=== PATIENT | female | born 1990 | race Caucasian/White ===

== ENCOUNTER → 2018-08-22 11:08 | Outpatient (CLI) | payer OTHER, SELFPAY ==
--- NOTE | 2018-08-22 | DI.RAD.S_ITS ---
PROCEDURE: XR CHEST 2V INDICATIONS: palpitations, short of breath, chondrocostal TECHNIQUE: 2 views of the chest were acquired. COMPARISON: None. FINDINGS: Surgical changes and devices: None. Lungs and pleura: Lungs are clear. No pleural effusions or pneumothorax. Mediastinum: Mediastinal contours are normal. Heart size is normal. Bones and chest wall: No suspicious bony abnormalities. Soft tissues appear unremarkable. IMPRESSION: No acute cardiopulmonary disease. Dictated by: Eri Helm M.D. on 08/22/2018 at 12:35 Approved by: Eri Helm M.D. on 08/22/2018 at 12:35
== END ==
PROVIDERS: PCP Physician Assistant; Visit Provider Physician Assistant
DX: R00.2 Palpitations (principal); R06.02 Shortness of breath; M94.0 Chondrocostal junction syndrome [Tietze]
CPT/HCPCS: 71046

== ENCOUNTER → 2018-11-27 08:01 | Outpatient (CLI) | payer OTHER, SELFPAY ==
[2018-11-27 09:01] LABS: Cholesterol 153 mg/dL (140-199); HDL Cholesterol 63 mg/dL (40-60); LDL Cholesterol Calculated 84 mg/dL (<100); Triglycerides 32 mg/dL (35-150)
[2018-11-30 18:30] LABS: Metanephrine, Free < 25 pg/mL (< OR = 57); Normetanephrine, Free 87 pg/mL (< OR = 148)
[2018-11-30 19:46] LABS: Total Volume 1600 mL; Urine, Metanephrine 51 mcg/24 h (36-190); Urine, Normetanephrine 168 mcg/24 h (35-482)
[2018-12-02 18:50] LABS: Creatinine, 24 Urine 1.09 g/24 h (0.50-2.15); Total Catecholamines 61 mcg/24 h (26-121); Total Volume: 1600 mL
== END ==
PROVIDERS: PCP Physician Assistant; Visit Provider Internal Medicine Cardiovascular Disease
DX: R03.0 Elevated blood-pressure reading, without diagnosis of hypertension (principal)
CPT/HCPCS: 36415; 80061; 82088; 82384; 83835

== ENCOUNTER → 2019-10-22 14:28 | Outpatient (CLI) | payer OTHER, SELFPAY ==
[2019-10-22 15:07] LABS: Add Manual Diff / Slide Review NO; Basophils Absolute Auto 0 /uL (0-100); Basophils Percent Auto 0.7 % (0-2); Eosinophils Absolute Auto 100 /uL (0-450); Eosinophils Percent Auto 0.8 % (2-4); Hematocrit 38.9 % (36-46); Hemoglobin 13.5 g/dL (12.0-16.0); Lymphocytes Absolute Auto 1500 /uL (1100-4500); Lymphocytes Percent Auto 23.1 % (25-40); Mean Corpuscular HGB Conc 34.8 % (30-36); Mean Corpuscular Hemoglobin 32.7 PG (26-34); Monocytes Absolute Auto 700 /uL (0-900); Monocytes Percent Auto 10.2 % (3-14); Neutrophils Absolute Auto 4200 /uL (1500-7000); Neutrophils Percent Auto 65.2 % (50-75); Platelet Count 207 X10^3/uL (150-400); Red Blood Cell Count 4.13 X10^6/uL (4.0-5.2); Red Cell Distribution Width 12.9 % (11.6-14.8); White Blood Cell Count 6.4 X10^3/uL (4.5-11.0)
[2019-10-22 15:30] LABS: Alanine Aminotransferase 11 IU/L (<35); Albumin 4.5 g/dL (3.5-5.0); Albumin Globulin Ratio 1.6 (1.0-2.8); Alkaline Phosphatase 43 U/L (38-126); Aspartate Aminotransferase 27 IU/L (14-36); BUN Creatinine Ratio 21.4 (6-22); Bilirubin Total 0.7 mg/dL (0.2-1.3); Blood Urea Nitrogen 12 mg/dL (7-17); Calcium 9.4 mg/dL (8.4-10.2); Carbon Dioxide 23 mmol/L (22-32); Chloride 104 mmol/L (98-107); Estimated Glomerular Filt Rate > 60.0 mL/min (>60); Globulin 2.9 g/dL (1.7-4.1); Glucose 80 mg/dL (70-100); HEMOLYSIS < 15 (0-50); Magnesium 1.9 mg/dL (1.6-2.3); Potassium 3.5 mmol/L (3.4-5.1); Sodium 137 mmol/L (137-145); Total Protein 7.4 g/dL (6.3-8.2)
[2019-10-22 15:48] LABS: HEMOLYSIS < 15 (0-50); Iron 155 ug/dL (37-170)
[2019-10-22 15:59] LABS: Percent Iron Saturation 48 % (15-50); Total Iron Binding Capacity 323 ug/dL (265-497); Transferrin 258 mg/dL (206-381)
[2019-10-22 16:20] LABS: TSH w/ Reflex to FT4 1.62 uIU/mL (0.47-4.68)
== END ==
PROVIDERS: PCP Physician Assistant; Referring Provider Physician Assistant; Visit Provider Physician Assistant
DX: R00.2 Palpitations (principal)
CPT/HCPCS: 36415; 80053; 83540; 83550; 83735; 84443; 85025

== ENCOUNTER → 2020-01-07 15:17 | Outpatient (CLI) | payer OTHER, SELFPAY ==
[2020-01-07 16:55] LABS: Follicle Stimulating Hormone 2.78 mIU/mL
== END ==
PROVIDERS: PCP Physician Assistant; Referring Provider Obstetrics & Gynecology; Visit Provider Obstetrics & Gynecology
DX: E28.2 Polycystic ovarian syndrome (principal)
CPT/HCPCS: 36415; 83001; 83002

== ENCOUNTER → 2021-11-04 14:47 | Outpatient (CLI) | payer OTHER, SELFPAY ==
[2021-11-04 20:06] LABS: Urine Chlamydia NOT DETECTED; Urine N gonorrhoeae NOT DETECTED
== END ==
PROVIDERS: PCP Physician Assistant; Visit Provider Obstetrics & Gynecology
DX: Z34.81 Encounter for supervision of other normal pregnancy, first trimester (principal); Z11.3 Encounter for screening for infections with a predominantly sexual mode of transmission
CPT/HCPCS: 87491; 87591

== ENCOUNTER → 2021-11-04 15:50 | Outpatient (CLI) | payer OTHER, SELFPAY ==
[2021-11-04 16:40] LABS: Add Manual Diff / Slide Review NO; Basophils Absolute Auto 0 /uL (0-100); Basophils Percent Auto 0.5 % (0-2); Eosinophils Absolute Auto 100 /uL (0-450); Eosinophils Percent Auto 0.9 % (2-4); Hemoglobin 13.8 g/dL (12.0-16.0); Lymphocytes Absolute Auto 1300 /uL (1100-4500); Lymphocytes Percent Auto 15.1 % (25-40); Mean Corpuscular HGB Conc 35.3 % (30-36); Mean Corpuscular Hemoglobin 32.9 PG (26-34); Mean Corpuscular Volume 93.2 fL (80-100); Monocytes Absolute Auto 700 /uL (0-900); Monocytes Percent Auto 7.8 % (3-14); Neutrophils Absolute Auto 6400 /uL (1500-7000); Neutrophils Percent Auto 75.7 % (50-75); Platelet Count 206 X10^3/uL (150-400); Red Blood Cell Count 4.19 X10^6/uL (4.0-5.2); Red Cell Distribution Width 12.9 % (11.6-14.8); White Blood Cell Count 8.4 X10^3/uL (4.5-11.0)
[2021-11-04 17:40] LABS: Hepatitis B Surface Antigen NEGATIVE s/c (NEGATIVE); Rubella Antibody IgG 38.4 IU/mL (>15)
[2021-11-04 17:57] LABS: HIV 1 & 2 Ab/Ag 4th Gen Combo NEGATIVE (NEGATIVE); Hep C Virus Ab w/Reflex Quant NEGATIVE s/c (NEGATIVE)
[2021-11-05 03:53] LABS: RPR Screen Non Reactive (Non Reactive)
[2021-11-05 13:10] LABS: Varicella IgG Antibody <135 index (Immune >165)
== END ==
PROVIDERS: PCP Physician Assistant; Referring Provider Obstetrics & Gynecology; Visit Provider Obstetrics & Gynecology
DX: Z34.81 Encounter for supervision of other normal pregnancy, first trimester (principal); Z11.3 Encounter for screening for infections with a predominantly sexual mode of transmission
CPT/HCPCS: 36415; 80055; 86787; 86803; 86850; 86900; 86901; 87389; 87491; 87591

== ENCOUNTER → 2021-12-02 14:13 | Outpatient (CLI) | payer OTHER, SELFPAY ==
[2021-12-02 16:19] LABS: Appearance Urine UA CLEAR; Bilirubin Urine UA NEGATIVE (NEGATIVE); Color Urine UA YELLOW; Glucose Urine UA NEGATIVE (Negative); Ketones Urine UA NEGATIVE (NEGATIVE); Leukocyte Esterase Urine UA NEGATIVE (NEGATIVE); Nitrite Urine UA NEGATIVE (Negative); Occult Blood Urine UA NEGATIVE (Negative); Protein Urine UA NEGATIVE (Negative); Specific Gravity Urine UA 1.025 (1.000-1.035); Urobilinogen Urine UA 0.2 E.U./dL (0.2)
[2021-12-02 16:24] LABS: pH Urine UA 5.5 (4.5-8.0)
== END ==
PROVIDERS: PCP Physician Assistant; Visit Provider Obstetrics & Gynecology
DX: Z34.81 Encounter for supervision of other normal pregnancy, first trimester (principal)
CPT/HCPCS: 81003; 87086

== ENCOUNTER → 2022-01-31 15:13 | Outpatient (CLI) | payer OTHER, MEDICAID, SELFPAY ==
--- NOTE | 2022-01-31 15:16 | DI.US.S_ITS ---
PROCEDURE: US OB >= 14 WEEKS FETUS INDICATIONS: ANATOMY OUTSIDE/PRIOR DATING DATA: Last menstrual period (LMP): 09/17/2021 LMP-based estimated date of delivery (YARED): 06/24/2022. First dating scan (date and location): 11/04/2021. Estimated date of delivery (YARED) from first dating scan: 06/23/2022. The calculations are made using the ultrasound YARED of 06/23/2022. TECHNIQUE: Real-time scanning was performed of the fetus, with image documentation and biometric measurements. COMPARISON: [facility], , OB >= 14 WEEKS FETUS, 01/27/2022, 14:56. FINDINGS: General: A single living intrauterine gestation is present. Presentation: Vertex. Placenta: Placental position is anterior , without previa. Amniotic fluid index: 15 cm, normal range is 5-24 cm. Single deepest vertical pocket is 4.9 cm. heart rate: 128 beats per minute. Maternal cervical canal: 4.3 cm long. Normal lower limit is 2.5 cm. biometrics: Biparietal diameter: 19 weeks 5 days Head circumference: 19 weeks 5 days Abdominal circumference: 20 weeks 2 days Femur length: 19 weeks 6 days Clinically estimated gestational age: 19 weeks 4 days Composite gestational age from present scan: 19 weeks 6 days Estimated weight and percentile: 329 g; 73rd percentile Anatomic survey: Neuro: Ventricles are non-dilated at less than 10 mm. Cisterna magna is normal at 3-11 mm. Cerebellum is normal in size and morphology. Right choroid plexus cyst measuring 5.6 mm. Nuchal skin fold: Normal at less than 6 mm between 14-21 weeks gestational age. Face: Nose and lips, facial profile are normal. Spine: No evidence for spina bifida. Heart: 4-chambered heart is present, with normal ventricular outflow tracts. Diaphragm: Diaphragm is intact. Stomach: Left-sided stomach is present. Kidneys: No hydronephrosis. Normal is less than 5 mm in 2nd trimester, less than 7 mm in 3rd trimester. Cord: 3-vessel cord has orthotopic insertion. Bladder: Normal in size. Extremities: All 4 extremities identified. Maternal posterior intramural fibroid measuring up to 4.1 cm. IMPRESSION: 1. 19 week 6 day single living IUP corresponding to ultrasound YARED of 06/23/2022. 2. Isolated choroid plexus cyst. Otherwise unremarkable survey with no anatomic abnormalities seen. 3. 4.1 cm posterior maternal intramural fibroid. We strive to produce accurate, complete, and clear reports of imaging services. To assist us in improving patient care, this report was composed using standard report templates and voice recognition software. Therefore, it may contain abnormal punctuation, insertions and/or omissions. Occasional wrong-word or sound-alike substitutions may occur. Though we review the report and make efforts to correct it, we do recommend that the report be read carefully in proper context to recognize any text inaccuracies. Dictated by: Marcelino IBARRA Interpreted: Luis Franks MD on 02/01/2022 at 11:53 Transcribed by: CELY on 02/01/2022 at 11:56 Approved by: Luis Franks M.D. on 02/01/2022 at 16:50
== END ==
PROVIDERS: PCP Physician Assistant; Referring Provider Obstetrics & Gynecology; Visit Provider Obstetrics & Gynecology
DX: O35.8XX0 Maternal care for other (suspected) fetal abnormality and damage, not applicable or unspecified (principal); O34.13 Maternal care for benign tumor of corpus uteri, third trimester; D25.1 Intramural leiomyoma of uterus; Z3A.20 20 weeks gestation of pregnancy
CPT/HCPCS: 76811

== ENCOUNTER → 2022-02-02 12:40 | Outpatient (CLI) | payer OTHER, MEDICAID, SELFPAY | PROVIDERS: PCP Physician Assistant; Referring Provider Obstetrics & Gynecology; Visit Provider Obstetrics & Gynecology | DX: Z34.82 Encounter for supervision of other normal pregnancy, second trimester (principal) | CPT/HCPCS: 36415 ==

== ENCOUNTER → 2022-03-24 14:43 | Outpatient (CLI) | payer OTHER, MEDICAID, SELFPAY ==
[2022-03-24 18:21] LABS: Hematocrit 30.6 % (36-46); Hemoglobin 10.6 g/dL (12.0-16.0)
[2022-03-24 19:11] LABS: GTT (PREG) 1 Hour PP 50gm Dose 131 mg/dL (76-139)
== END ==
PROVIDERS: PCP Physician Assistant; Referring Provider Obstetrics & Gynecology; Visit Provider Obstetrics & Gynecology
DX: Z34.82 Encounter for supervision of other normal pregnancy, second trimester (principal); Z3A.26 26 weeks gestation of pregnancy
CPT/HCPCS: 36415; 82950; 85014; 85018

== ENCOUNTER → 2022-05-26 15:34 | Outpatient (CLI) | payer OTHER, MEDICAID, SELFPAY ==
[2022-05-27 15:10] LABS: Strep Grp B PCR POS for Grp B Strep
== END ==
PROVIDERS: PCP Physician Assistant; Visit Provider Obstetrics & Gynecology
DX: Z36.85 Encounter for antenatal screening for Streptococcus B (principal); Z3A.36 36 weeks gestation of pregnancy
CPT/HCPCS: 87653

== ENCOUNTER 2022-06-01 09:50 | Outpatient (CLI) | payer OTHER, MEDICAID, SELFPAY ==
[2022-06-01 11:00] LABS: Add Manual Diff / Slide Review NO; Basophils Absolute Auto 0 /uL (0-100); Basophils Percent Auto 0.1 % (0-2); Eosinophils Absolute Auto 0 /uL (0-450); Eosinophils Percent Auto 0.5 % (2-4); Hematocrit 28.2 % (36-46); Hemoglobin 9.8 g/dL (12.0-16.0); Lymphocytes Absolute Auto 800 /uL (1100-4500); Lymphocytes Percent Auto 8.9 % (25-40); Mean Corpuscular HGB Conc 34.7 % (30-36); Monocytes Absolute Auto 900 /uL (0-900); Monocytes Percent Auto 10.2 % (3-14); Neutrophils Absolute Auto 7400 /uL (1500-7000); Neutrophils Percent Auto 80.3 % (50-75); Platelet Count 224 X10^3/uL (150-400); Red Blood Cell Count 2.97 X10^6/uL (4.0-5.2); Red Cell Distribution Width 14.2 % (11.6-14.8); White Blood Cell Count 9.3 X10^3/uL (4.5-11.0)
[2022-06-01 11:15] LABS: Aspartate Aminotransferase 22 IU/L (14-36); BUN Creatinine Ratio 12.7 (6-22); Blood Urea Nitrogen 7 mg/dL (7-17); Estimated Glomerular Filt Rate > 60 mL/min (>60); Uric Acid 4.8 mg/dL (2.5-6.2)
[2022-06-01 12:17] LABS: Protein (Total) Urine Random 10 mg/dL (0-12); Protein Creatinine Ratio Urine 0.12 GRAM/24H
== END 2022-06-01 11:20 | disposition home or self-care (01) ==
LOC: LABOR 10:07 → OB 06-06 15:45
PROVIDERS: PCP Physician Assistant; Referring Provider Obstetrics & Gynecology; Visit Provider Obstetrics & Gynecology
DX: O10.913 Unspecified pre-existing hypertension complicating pregnancy, third trimester (principal); Z3A.37 37 weeks gestation of pregnancy
CPT/HCPCS: 59025; 82570; 84156; 84450; 84550; 85025; G0378; G0379

== ENCOUNTER 2022-06-05 17:53 | Inpatient (IN) | payer OTHER, MEDICAID, SELFPAY ==
[2022-06-05 19:13] LABS: COVID19 -Nasal RAPID Negative (Negative)
[2022-06-05] MEDS: PENICILLIN G POTASSIUM 5,000,000 UNIT in DEXTROSE 5% IN WATER 250 ML 250 UNIT IV (19:55)
[2022-06-05] MEDS: miSOPROStoL 100 MCG TABLET 25 MCG VAG (19:55)
[2022-06-05 20:06] LABS: Add Manual Diff / Slide Review NO; Basophils Absolute Auto 0 /uL (0-100); Basophils Percent Auto 0.3 % (0-2); Eosinophils Absolute Auto 100 /uL (0-450); Eosinophils Percent Auto 0.8 % (2-4); Hematocrit 28.3 % (36-46); Hemoglobin 9.7 g/dL (12.0-16.0); Lymphocytes Absolute Auto 800 /uL (1100-4500); Lymphocytes Percent Auto 9.3 % (25-40); Mean Corpuscular HGB Conc 34.2 % (30-36); Mean Corpuscular Hemoglobin 32.7 PG (26-34); Mean Corpuscular Volume 95.8 fL (80-100); Monocytes Absolute Auto 900 /uL (0-900); Monocytes Percent Auto 9.6 % (3-14); Neutrophils Absolute Auto 7200 /uL (1500-7000); Platelet Count 232 X10^3/uL (150-400); Red Blood Cell Count 2.95 X10^6/uL (4.0-5.2); Red Cell Distribution Width 14.3 % (11.6-14.8)
--- NOTE | 2022-06-05 20:24 | PM.OBHP.IH.1 ---
OB HPI Date/Time Date of admission: 06/05/22 Date Patient Seen: 06/05/22 Time Patient Seen: 20:25 History of Present Condition Chief complaint: soften cervix YARED Calculator Estimated Delivery Date Method Current WG Current Estimate 06/23/22 Ultrasound #1 37w 3d Other Estimates 06/24/22 LMP (Uncertain) 37w 2d 06/19/22 Ultrasound #2 38w 0d Estimated Gestational Age (weeks): 37+3 : 3 Para: 2 care: good care, initiated at week # (7), number of visits (11) and pounds weight gain (42) Dating criteria OB: LMP confirmed by 1st trimester US Ultrasounds: normal 1st trimester US and abnormal US findings (Choroid plexus cyst) Obstetrical complications: other (chronic hypertension) Medical complications OB: cardiovascular (Chronic hypertension) Indications Indication for induction OB: gestational HTN/pre-eclampsia Preadmission Labs Last OB Lab Results: Blood Type A Positive 11/04/21 16:27 Antibody Screen Negative 11/04/21 16:27 Hematocrit 28.3 % (36-46) L 06/05/22 09:30 Hemoglobin 9.7 g/dL (12.0-16.0) L 06/05/22 09:30 Hepatitis B Surface Antigen Negative s/c (NEGATIVE) 11/04/21 16:27 Hepatitis C Antibody Negative s/c (NEGATIVE) 11/04/21 16:27 Rubella Antibody 38.4 IU/mL (>15) 11/04/21 16:27 Varicella-Zoster IgG Antibody <135 index (Immune >165) L 11/04/21 16:27 Glucose 1 Hour 131 mg/dL (76-139) 03/24/22 15:06 Group B Streptococcus (PCR) Pos for grp b strep H 05/26/22 15:34 -: Chlamydia screen: negative, Gonorrhea screen: negative and Urine: negative -: PAP smear: Normal (2019) Genetic Screens: Cell-free DNA: Normal External Labs -: Urine: negative Prior (ies) Past Pregnancies Del. Date GA/Weeks Labor Lgth Wt Sex Route Outcome Anesthesia Place Delv Breastfeed Preg Comp Name 04/14/14 40 9 7 lb Female vacuum live - full term IH 1 year none Clair Cruz 12/16/16 40 3 6 lb Female vaginal live - full term IH 1 year none Alicja Evaluation Evaluation Baseline heart rate: 135 Variability: Moderate (11-25) monitor accelerations: Present Monitor Decelerations: Absent Status: Category l Dilation (cm): 1 Effacement (%): 50 Dilation: 1-2 cm Effacement: 40-50% station: -3 Position of cervix: posterior Consistency: medium Mendenhall score: 3 PFSH Medical History (Updated 04/29/22 @ 17:12 by Danielle Tom MD) Acne Anxiety Migraines Ovarian cyst Painful menstrual periods Restless leg syndrome Scoliosis Surgical History (Updated 12/01/21 @ 21:14 by Cherelle Stevenson) Anesthesia History of third molar tooth extraction Status post ovarian cystectomy (06/17/11) Family History (Updated 12/01/21 @ 21:18 by Cherelle Stevenson) Father Hypertension Hyperlipidemia Grandmother Stroke Cancer History of heart disease Hypertension Hyperlipidemia Grandmother Breast cancer Pancreatic cancer Hypertension Mother Heart murmur Hypertension Grandfather Diabetes mellitus History of heart disease Hypertension Grandfather Hypertension Social History marital status: number of children: 2 household members: spouse and children lives independently: Yes pets and animals: Yes (1 dog, 2 guinea pigs ( manages clean-up)) education level: college (some college) occupational status: unemployed current occupational exposures/hazards: No dedrick/mormonism: Congregation special dedrick needs: No seatbelt use: always helmet use: Yes water heater temp set < 120 deg: Yes working smoke detector in home: Yes fire extinguisher in home: Yes carbon monox detector in home: Yes firearms in home: No do you feel safe at home: Yes Smoking Status: Never smoker second hand exposure: No alcohol intake: never substance use type: does not use during the past year weight has: increased > 10 lbs well-balanced diet: about half the time daily servings fruits/ve-4 caffeine: No Type(s) of exercise: walking and resistance training frequency: daily Meds Home Medications and Allergies Home Medications Medication Instructions Recorded Confirmed Type [PROBIOTIC] ##0 05/07/17 06/03/22 History omega 8-mkz-fuz-fish oil 60 mg-90 1 cap PO DAILY 11/02/21 06/03/22 History mg-500 mg capsule (Fish Oil) prenat.vits,my,siy-llqo-hmyuh 1 tab PO DAILY 11/02/21 06/03/22 History psyllium husk 0.4 gram capsule 0.4 g PO DAILY 11/02/21 06/03/22 History (Daily Fiber) labetalol 100 mg tablet 100 mg PO DAILY #30 tabs 12/02/21 06/03/22 Rx fluconazole 150 mg tablet 150 mg PO DAILY #1 tab 12/16/21 06/03/22 Rx (Diflucan) nifedipine 30 mg tablet,extended 30 mg PO DAILY #30 tabs 04/19/22 06/03/22 Rx release Allergies Allergy/AdvReac Type Severity Reaction Status Date / Time oxycodone [From PERCOCET] Allergy Unknown ITCHING/HIV Verified 06/03/22 12:48 ES Sulfa (Sulfonamide Allergy Unknown Verified 06/03/22 12:48 Antibiotics) [SULFA (SULFONAMIDE ANTIBIOTICS)] OB Exam Narrative Exam Narrative: Generally: Patient is sitting in bed, no acute distress Lungs: Clear to auscultation bilaterally Cardiovascular: Regular rate and rhythm Fundal height: 38 cm Estimated weight: 6-1/2 lb Extremities: No edema Objective Labs Result Diagrams: 06/05/22 09:30 Labs: Laboratory Results - last 24 hr 06/05/22 06/05/22 09:30 18:30 WBC 9.0 RBC 2.95 L Hgb 9.7 L Hct 28.3 L MCV 95.8 MCH 32.7 MCHC 34.2 RDW 14.3 Plt Count 232 Neut % (Auto) 80.0 H Lymph % (Auto) 9.3 L Harmon % (Auto) 9.6 Eos % (Auto) 0.8 L Baso % (Auto) 0.3 Neut # (Auto) 7200 H Lymph # (Auto) 800 L Harmon # (Auto) 900 Eos # (Auto) 100 Baso # (Auto) 0 SARS-CoV-2 (PCR) Negative Assessment and Plan Assessment and Plan Assessment and Plan narrative: Assessment: 31-year-old 3 para 2 at 37-,3/7 weeks gestation with chronic hypertension Unfavorable cervix GBS positive Plan: Cytotec for cervical ripening Pitocin in the morning if favorable GBS prophylaxis Expected management to spontaneous vaginal delivery Time Spent with Patient Total time spent with greater than 50% in coordination of care (as documented) at patient's floor/unit and/or counseling patient:: 15-24 minutes
[2022-06-05] MEDS: LACTATED RINGERS 1,000 ML 100 ML IV (21:00)
[2022-06-06] MEDS: PENICILLIN G POTASSIUM 3,000,000 UNIT/50 ML FROZ.PIGGY 100 UNIT IV ×4 (00:07→13:34)
[2022-06-06] MEDS: miSOPROStoL 100 MCG TABLET 25 MCG VAG (00:08)
[2022-06-06 09:25] VITALS: BP 174/96; PULSE 90
[2022-06-06] MEDS: OXYTOCIN PREMIX 30 UNIT/500 ML PLAST..BAG IV (09:25)
[2022-06-06] MEDS: LABETALOL 100 MG TABLET PO ×2 (09:25→21:09)
--- NOTE | 2022-06-06 10:22 | PM.OBPNLAB ---
Date/Time Date Patient Seen: 06/06/22 Time Patient Seen: 10:22 Pain Control Pain control: tolerating well Pelvic Exam Dilation (cm): 2 Effacement (%): 75 station: -2 Amniotic membrane status: Intact Contractions Contractions on admission: none Monitor mode: External Pitocin rate (mU/min): 2 Contraction frequency (min): 4 Contraction duration (min): 1 Contraction pattern: Regular Contraction intensity: Mild Status status: Category l Heart Rate Baseline: 135 Monitor Accelerations: Present Monitor Decelerations: Absent Monitor Variability: Moderate Assessment and Plan Assessment: induction ongoing Comments: AROM with more cervical change Epidural prn Monitor BP
[2022-06-06] MEDS: FENT 2MCG/ML BUPIV 0.125% EPI 200 MCG/100 ML PLAST..BAG 8 MCG EPIDURAL (13:33)
[2022-06-06] MEDS: LACTATED RINGERS 1,000 ML 100 ML IV (13:34)
--- NOTE | 2022-06-06 13:35 | PM.OBPNLAB ---
Date/Time Date Patient Seen: 06/06/22 Time Patient Seen: 13:15 Pain Control Pain control: epidural Pelvic Exam Dilation (cm): 3 Effacement (%): 75 station: -1 Amniotic membrane status: Intact Contractions Contractions on admission: none Monitor mode: External Pitocin rate (mU/min): 2 Contraction frequency (min): 4 Contraction duration (min): 1 Contraction pattern: Regular Contraction intensity: Moderate Status status: Category l Heart Rate Baseline: 130 Monitor Accelerations: Present Monitor Decelerations: Late (occ, after epidural with drop in BP) Monitor Variability: Moderate Assessment and Plan Assessment: induction ongoing Comments: Pitocin off for 30 minutes Oxygen permit facemask Left lateral position AROM with copious clear amniotic fluid Expected management to spontaneous vaginal delivery
--- NOTE | 2022-06-06 17:16 | P.PCNOB_ITS ---
Events: Labor Induction and Other (Chronic hypertension) Labor & Delivery Delivery date: 06/06/22 Cervical ripening method: per misoprostal protocol Induction method: per pitocin protocol Delivery augmentation: rupture of membranes Delivery monitor: external FHT and external uterine Route of delivery: Episiotomy description: None L&D Laceration Description: Perineal - 1st Degree and Labial (Bilateral superficial) Delivery repair: chromic Quantitative Blood Loss: 150 Anesthesia Type: Epidural Complications: None Narrative: Patient complete and pushed with 3 contractions. At 1656, a live female infant delivered spontaneously over an intact perineum, in the MICHAEL presentation. There was a piece of cord near the shoulder. The remainder of the body delivered without difficulty and was placed on mom's abdomen. After the cord stopped pulsing, the cord was double clamped and cut. Cord bloods were obtained. Pitocin was given in the IV fluids. The placenta delivered intact with a three- vessel cord at 1707 . The fundus was massaged to firm. QBL 150 cc. Apgars 9 at 1 minute and 9 at 5 minutes. . Epidural analgesia. Mom and i nfant stable to recovery. [place] [facility]: gender: Female Presentation: vertex Position: Left Occiput Anterior Placenta delivery description: Spontaneous Cord Vessel Description: 3 Vessels and Clamped/Cut (After the cord stopped pulsing) score (1 min): 9 score (5 min): 9 weight: 7 lb 6.3 oz Plan for aftercare: Routine care
[2022-06-06] MEDS: IBUPROFEN 600 MG TABLET PO (19:17)
[2022-06-06] MEDS: ACETAMINOPHEN 325 MG TABLET 650 MG PO (19:18)
[2022-06-06] MEDS: DERMOPLAST SPRAY 20% 60 ML 1 SPRAY TOP (20:10)
[2022-06-06] MEDS: LANOLIN OINT 7 GM 1 APPLIC TOP (20:10)
[2022-06-06 21:09] VITALS: BP 140/85; PULSE 102
[2022-06-06 21:39] VITALS: BP 134/83; PULSE 83
[2022-06-07] MEDS: ACETAMINOPHEN 325 MG TABLET 650 MG PO (01:02)
[2022-06-07] MEDS: IBUPROFEN 600 MG TABLET PO ×2 (01:03→08:06)
[2022-06-07 05:50] LABS: Hematocrit 27.6 % (36-46); Hemoglobin 9.2 g/dL (12.0-16.0)
[2022-06-07 08:06] VITALS: BP 141/91; PULSE 73; TEMP 36.4
[2022-06-07] MEDS: LABETALOL 100 MG TABLET PO (08:06)
[2022-06-07] MEDS: DOCUSATE 100 MG CAPSULE PO (08:07)
[2022-06-07] MEDS: PRENATAL VIT,CALC/IRON/FOLIC 1 TABLET 1 TAB PO (08:07)
--- NOTE | 2022-07-09 20:11 | PM.OBDS.1 ---
Discharge Providers Provider Date of admission: 06/05/22 17:53 Discharge Date: 06/07/22 Primary care physician: Nilda Stephens PA-C Consults: Anesthesia for epidural Discharge provider: Danielle Tom MD Summary Hospital Course Date Patient Seen: 06/07/22 Time Patient Seen: 07:30 Diagnoses: 37-,3/7 weeks gestation Chronic hypertension Cervical ripening Pitocin augmentation of labor Artificial rupture of membranes Spontaneous vaginal delivery First-degree perineal and bilateral superficial labial lacerations Hospital Course: Patient is a 31-year-old 3 para 3 who presented on June 05, 2022 for cervical ripening. She was being induced due to chronic hypertension. She was group B strep positive. She underwent Cytotec cervical ripening and on June 06, 2022 she was 2 cm/75% effaced/-2 station. At 1:15 a.m. on that day she had progressed to 3 cm/75% effaced/-1 station. Artificial rupture membranes was performed with copious clear amniotic fluid. After the epidural was placed she had occasional late decelerations that were associated with the drop in blood pressure. Her position was changed and O2 per face mask was applied. The late decelerations resolved. At 4:56 p.m. she had a spontaneous vaginal delivery after pushing with 3 contractions. There was a piece of cord near the shoulder. She had minor lacerations which were repaired. Her postoperative course was unremarkable and she was discharged home on June 07, 2022. Peripartum Data Delivery Method: Natural Vaginal Laceration Description: Perineal - 1st Degree and Labial (Superficial) Episiotomy description: None Procedures: Cytotec cervical ripening Pitocin augmentation of labor Artificial rupture of membranes Epidural analgesia Spontaneous vaginal delivery Repair of first-degree perineal and bilateral superficial labial laceration Group B strep antibiotic prophylaxis complications: none [place] 1: Gender: Female Disposition of : home Status at Discharge Cognitive/behavioral status at discharge: oriented Functional status at discharge: independent ambulation Overall status at discharge: patient is progressing back to baseline Time Spent with Patient Time attestation: Total time spent providing and/or coordinating discharge services: Time spent: Less than 30 minutes Objective Labs 06/07/22 05:43 Exam Narrative Exam Narrative: Generally: Patient is sitting up in bed, holding infant, no acute distress Fundus: Firm at U -2 Extremities: No edema, negative Homans Discharge Plan Discharge Plan Patient Disposition: Home Provider Discharge Comment: Call with fever, chills, or bleeding vaginally more than a pad in an hour Ibuprofen 600 mg every 6 hours as needed Tylenol 650 mg every 6 hours as needed Discharge orders & Medications Prescriptions: Continued prenat.vits,my,ihe-nkyl-ycrlp Tablet 1 tab PO DAILY labetalol 100 mg tablet 50 mg BID Discontinued ferrous gluconate 324 mg (36 mg iron) Tablet 324 mg PO DAILY magnesium 100 mg Tablet 100 mg PO DAILY No Action hydrocortisone [Anusol-HC] 2.5 % cream with perineal applicator 1 applic OK BID PRN (Reason: hemorrhoids) Qty: 30 0RF Follow up/Referrals: Danielle Tom MD [Physician] - 6 Weeks Diet/Activity/Treatments Diet: Regular Activity: Nothing in the vagina for 6 weeks Skin/Wound/Dressing Care Report to your healthcare provider any signs of infection, such as:: chills, fever, increased pain and unusual drainage Visit Report/Discharge Packet Instructions: DI for Labor and Delivery, Vaginal Stand Alone Forms: Patient Portal/API Discharge Data Primary Care Provider: Nilda Stephens
== END 2022-06-07 13:13 | disposition home or self-care (01) | DRG 560 ==
PROVIDERS: Admitting Provider Obstetrics & Gynecology; PCP Physician Assistant; Referring Provider Obstetrics & Gynecology; Visit Provider Obstetrics & Gynecology
DX: O10.92 Unspecified pre-existing hypertension complicating childbirth (principal); O34.43 Maternal care for other abnormalities of cervix, third trimester; O99.824 Streptococcus B carrier state complicating childbirth; Z3A.37 37 weeks gestation of pregnancy; Z37.0 Single live birth; Z20.822 Contact with and (suspected) exposure to COVID-19
CPT/HCPCS: 36415; 59050; 59200; 59409; 85014; 85018; 85025; 86850; 86900; 86901; 87635; C9803; G0379; J2540; J2590

== ENCOUNTER → 2022-09-09 08:52 | Outpatient (CLI) | payer OTHER, MEDICAID, SELFPAY ==
--- NOTE | 2022-09-09 08:54 | DI.US.S_ITS ---
PROCEDURE: US PELVIC COMPLETE INDICATIONS: IRREGULAR BLEEDING, FIBROID TECHNIQUE: Real-time scanning was performed of the pelvic organs, with image documentation. Additional endovaginal scanning was necessary due to incomplete visualization of the adnexal and endometrial structures by transabdominal scanning. COMPARISON: [facility], US, US PELVIC COMPLETE, 01/07/2020, 14:52. [facility], US, US PELVIC COMPLETE, 02/24/2020, 16:51. FINDINGS: Uterus: Uterus is retroverted and normal in size at 7.2 x 4.9 x 6.2 cm. The myometrium is heterogeneous, with a 2.3 x 1.6 x 2 cm subserosal fibroid seen on the right posteriorly. The endometrium measures 5 mm combined thickness. Incidental note is made of nabothian cysts. Ovaries: The right ovary measures 2.5 x 2.7 x 3.6 cm, with a calculated ovarian volume of 12.7 cc. The left ovary measures 2.8 x 2.2 x 2.1 cm, with a calculated ovarian volume of 6.8 cc. The ovaries have a normal sonographic appearance, with note made of a left ovarian cystic follicle that measures up to 2.5 cm, which is considered to be within physiologic limits. Less than 12 follicles can be seen in each ovary. No adnexal masses are seen. Other: A mild amount of free pelvic fluid is seen, which is considered to be within physiologic limits. IMPRESSION: There is a 2.3 cm subserosal fibroid seen on the right posteriorly. No additional significant pelvic ultrasound abnormality can be seen. We strive to produce accurate, complete, and clear reports of imaging services. To assist us in improving patient care, this report was composed using standard report templates and voice recognition software. Therefore, it may contain abnormal punctuation, insertions and/or omissions. Occasional wrong-word or sound-alike substitutions may occur. Though we review the report and make efforts to correct it, we do recommend that the report be read carefully in proper context to recognize any text inaccuracies. Dictated by: Don León M.D. on 09/09/2022 at 10:20 Approved by: Don León M.D. on 09/09/2022 at 10:23
== END ==
PROVIDERS: PCP Physician Assistant; Referring Provider Obstetrics & Gynecology; Visit Provider Obstetrics & Gynecology
DX: D25.2 Subserosal leiomyoma of uterus (principal); N92.6 Irregular menstruation, unspecified
CPT/HCPCS: 76830; 76856

== ENCOUNTER → 2023-11-25 10:01 | Outpatient (CLI) | payer OTHER, SELFPAY ==
[2023-11-25 10:50] LABS: Add Manual Diff / Slide Review NO; Basophils Absolute Auto 0 /uL (0-100); Basophils Percent Auto 0.5 % (0-2); Eosinophils Absolute Auto 100 /uL (0-450); Eosinophils Percent Auto 2.1 % (2-4); Hematocrit 37.9 % (36-46); Lymphocytes Absolute Auto 1100 /uL (1100-4500); Lymphocytes Percent Auto 19.4 % (25-40); Mean Corpuscular HGB Conc 34.4 % (30-36); Mean Corpuscular Hemoglobin 32.4 PG (26-34); Mean Corpuscular Volume 94.2 fL (80-100); Monocytes Absolute Auto 600 /uL (0-900); Monocytes Percent Auto 10.1 % (3-14); Neutrophils Absolute Auto 3800 /uL (1500-7000); Neutrophils Percent Auto 67.9 % (50-75); Platelet Count 237 X10^3/uL (150-400); Red Blood Cell Count 4.02 X10^6/uL (4.0-5.2); Red Cell Distribution Width 13.4 % (11.6-14.8); White Blood Cell Count 5.6 X10^3/uL (4.5-11.0)
[2023-11-25 11:10] LABS: Alanine Aminotransferase 11 IU/L (<35); Albumin 4.1 g/dL (3.5-5.0); Albumin Globulin Ratio 1.5 (1.0-2.8); Alkaline Phosphatase 68 U/L (38-126); Aspartate Aminotransferase 19 IU/L (14-36); BUN Creatinine Ratio 14.5 (6-22); Bilirubin Total 0.8 mg/dL (0.2-1.3); Blood Urea Nitrogen 9 mg/dL (7-17); Calcium 8.8 mg/dL (8.4-10.2); Carbon Dioxide 25 mmol/L (22-32); Chloride 106 mmol/L (98-107); Cholesterol 188 mg/dL (140-199); Estimated Glomerular Filt Rate > 60 mL/min (>60); Globulin 2.8 g/dL (1.7-4.1); Glucose 90 mg/dL (70-100); HDL Cholesterol 49 mg/dL (40-60); HEMOLYSIS < 15 (0-50); LDL Cholesterol Calculated 127 mg/dL (<100); Potassium 4.2 mmol/L (3.4-5.1); Sodium 137 mmol/L (137-145); Total Protein 6.9 g/dL (6.3-8.2); Triglycerides 60 mg/dL (35-150)
[2023-11-25 11:26] LABS: Free T3, Triiodothyronine Free 3.53 pg/mL (2.77-5.27); Free T4, Direct Thyroxine 0.88 ng/dL (0.78-2.19)
[2023-11-25 11:39] LABS: Thyroid Stimulating Hormone 1.12 uIU/mL (0.47-4.68)
[2023-11-25 11:47] LABS: Ferritin 18 ng/mL (6-137)
[2023-11-26 10:36] LABS: Thyroid Peroxidase Antibodies 13 IU/mL (0-34)
== END ==
PROVIDERS: PCP Naturopath; Referring Provider Naturopath; Visit Provider Naturopath
DX: Z00.00 Encounter for general adult medical examination without abnormal findings (principal); E61.1 Iron deficiency; R53.83 Other fatigue
CPT/HCPCS: 36415; 80053; 80061; 82728; 84439; 84443; 84481; 85025; 86376

== ENCOUNTER → 2024-08-03 11:25 | Outpatient (CLI) | payer OTHER, SELFPAY ==
[2024-08-03 12:39] LABS: Hematocrit 40.2 % (36-46); Hemoglobin 13.6 g/dL (12.0-16.0)
[2024-08-03 13:28] LABS: Ferritin 35 ng/mL (6-137)
== END ==
PROVIDERS: PCP Naturopath; Referring Provider Naturopath; Visit Provider Naturopath
DX: E61.1 Iron deficiency (principal)
CPT/HCPCS: 36415; 82728; 85014; 85018